=== PATIENT | female | born 1985 | race African-American/Black ===

== ENCOUNTER 2017-03-25 14:05 | Emergency (ER) | payer MEDICAID, SELFPAY | END 2017-03-25 15:30 | disposition home or self-care (01) | LOC: MADERS 14:05 | DX: J32.0 Chronic maxillary sinusitis (principal); F17.210 Nicotine dependence, cigarettes, uncomplicated | CPT/HCPCS: 99283 ==

== ENCOUNTER 2017-08-13 22:18 | Emergency (ER) | payer SELFPAY ==
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
== END 2017-08-14 02:27 | disposition home or self-care (01) ==
LOC: MADERS 22:18
DX: S06.0X0A Concussion without loss of consciousness, initial encounter (principal); F17.210 Nicotine dependence, cigarettes, uncomplicated; V49.9XXA Car occupant (driver) (passenger) injured in unspecified traffic accident, initial encounter
CPT/HCPCS: 70450

== ENCOUNTER 2017-09-09 04:26 | Emergency (ER) | payer SELFPAY | END 2017-09-09 05:34 | disposition home or self-care (01) | LOC: MADERS 04:26 | DX: G56.02 Carpal tunnel syndrome, left upper limb (principal); F17.210 Nicotine dependence, cigarettes, uncomplicated | CPT/HCPCS: 99283 ==

== ENCOUNTER 2018-05-03 20:59 | Emergency (ER) | payer SELFPAY ==
[2018-05-03 22:02] LABS: #Basophils 0.1 thou/uL (0.0-0.2); #Eosinphils 0.2 thou/uL (0.0-0.7); #Lymphocytes 2.7 thou/uL (1.20-3.40); #Monocytes 0.5 thou/uL (0.11-0.59); %Eosinophils 2.4 % (0.0-10.0); %Lymphocytes 41.9 % (21.0-51.0); %Monocytes 7.2 % (0.0-10.0); %Neutrophils 46.5 % (42.0-75.0); Anisocytosis SLIGHT = 6-15 cells (100X) (0-5/hpf); Elliptocytes SLIGHT = 2-5 cells (100X) (0-1/hpf); Hemoglobin 7.6 g/dL (12.0-16.0); Hypochromia MODERATE=16-30 cells (100X) (0-5/hpf); MDiff Complete? YES; Mean Corpuscular HGB CONC 29.4 g/dL (32.0-36.0); Mean Corpuscular Hemoglobin 18.2 pg (27.0-31.0); Mean Corpuscular Volume 61.8 fL (78.0-98.0); Mean Platelet Volume 6.5 fL (7.4-10.4); Microcytosis SLIGHT = 6-15 cells (100X) (0-5/hpf); PLT Morphology Comment Appears Adequate; Platelet Count 181 thou/uL (130-400); Poikilocytosis SLIGHT = 6-15 cells (100X) (0-5/hpf); RBC Distribution Width 18.9 % (11.5-14.5); RBC Morphology Abnormal; Red Blood Cell (RBC) Count 4.19 mill/uL (4.20-5.40); White Blood Cell (WBC) Count 6.4 thou/uL (4.8-10.8)
[2018-05-03 22:21] LABS: Bilirubin Negative (Negative); Blood, Urine Moderate (Negative); Glucose, Urine (Dipstick) Negative (Negative); Leukocyte Negative (Negative); Nitrite Negative (Negative); Protein, Urine (Dipstick) Trace mg/dL (Neg-Trace); Urobilinogen 0.2 mg/dL (0.2-1.0); pH, Urine 8.5 (5.0-9.0)
[2018-05-03 22:23] LABS: Bacteria/HPF None Seen HPF (None Seen); Clarity Cloudy (Clear); RBC/HPF GREATER THAN 50-TNTC HPF (0-3); WBC/HPF 0-3 HPF (0-3)
[2018-05-06 19:13] LABS: Chlamydia by PCR Not Detected (NotDetected)
[2018-05-06 19:14] LABS: GC by PCR Not Detected (NotDetected)
== END 2018-05-03 22:37 | disposition short-term general hospital (02) ==
LOC: MADERS 20:59
DX: O46.91 Antepartum hemorrhage, unspecified, first trimester (principal); O99.011 Anemia complicating pregnancy, first trimester; O99.331 Smoking (tobacco) complicating pregnancy, first trimester; Z3A.01 Less than 8 weeks gestation of pregnancy
CPT/HCPCS: 81003; 81015; 84702; 85025; 86850; 86900; 86901; 87480; 87491; 87510; 87591; 87660; 99285

== ENCOUNTER 2019-04-24 18:52 | Emergency (ER) | payer OTHER, SELFPAY ==
[~2019-04-24 18:52] MED LIST: Iopamidol 370 76% 100 ML VIAL ONE; Sodium Chloride 0.9% 1,000 ML BAG ONE
[2019-04-24] MEDS ORDERED: Ketorolac Tromethamine 30 MG/ML VIAL ONE (19:50)
[2019-04-24 19:52] LABS: BHCG - Serum Negative (NEGATIVE); Pregs Control Background? CLEAR/WHITE (CLR/WHITE); Pregs Control Bar Appear? YES (CONTROL BAR)
[2019-04-24 19:55] LABS: ALT (SGPT) 8 U/L (8-55); AST (SGOT) 11 U/L (5-34); Albumin 4.2 g/dL (3.5-5.0); Alkaline Phosphatase 108 U/L (40-110); Anion Gap 13 mmol/L (10-20); BUN (Urea Nitrogen) 10 mg/dL (7.0-18.7); Bilirubin, Total Less than 0.2 mg/dL (0.2-1.2); Calc. Creatinine Clearance 0 mL/min (70-130); Calcium 9.8 mg/dL (7.8-10.44); Carbon Dioxide 22 mmol/L (22-29); Chloride 108 mmol/L (98-107); Estimated GFR-MDRD Greater than 90; Globulin 3.3 g/dL (2.4-3.5); Glucose 121 mg/dL (70-105); Potassium 4.1 mmol/L (3.5-5.1); Protein, Total 7.5 g/dL (6.0-8.3); Sodium 139 mmol/L (136-145)
[2019-04-24 19:58] LABS: #Basophils 0.1 thou/uL (0.0-0.2); #Eosinphils 0.2 thou/uL (0.0-0.7); #Lymphocytes 2.6 thou/uL (1.20-3.40); #Monocytes 0.4 thou/uL (0.11-0.59); #Neutrophils 3.5 thou/uL (1.40-6.50); %Basophils 2.2 % (0.0-1.0); %Eosinophils 2.4 % (0.0-10.0); %Lymphocytes 38.4 % (21.0-51.0); %Monocytes 6.2 % (0.0-10.0); %Neutrophils 50.9 % (42.0-75.0); Anisocytosis SLIGHT = 6-15 cells (100X) (0-5/hpf); Hemoglobin 9.1 g/dL (12.0-16.0); Hypochromia SLIGHT = 6-15 cells (100X) (0-5/hpf); MDiff Complete? YES; Mean Corpuscular HGB CONC 27.5 g/dL (32.0-36.0); Mean Corpuscular Hemoglobin 17.2 pg (27.0-31.0); Mean Corpuscular Volume 62.5 fL (78.0-98.0); Microcytosis SLIGHT = 6-15 cells (100X) (0-5/hpf); Ovalocytes SLIGHT = 2-5 cells (100X) (0-1/hpf); Platelet Count 251 thou/uL (130-400); Platelet Morphology Comment Appears Adequate; RBC Distribution Width 17.7 % (11.5-14.5); Target Cells SLIGHT = 2-5 cells (100X) (0-1/hpf); Tear Drops SLIGHT = 2-5 cells (100X) (0-1/hpf); White Blood Cell (WBC) Count 6.8 thou/uL (4.8-10.8)
[2019-04-24 20:11] LABS: Bilirubin Negative (Negative); Blood, Urine Negative (Negative); Clarity Slightly Cloudy (Clear); Glucose, Urine (Dipstick) Negative (Negative); Leukocyte Small (Negative); Nitrite Negative (Negative); Protein, Urine (Dipstick) Negative (Neg-Trace); Urobilinogen 0.2 mg/dL (Less than 2)
--- NOTE | 2019-04-24 20:17 | RAD ---
2 view chest: [04/24/2019] Comparison:None available HISTORY: Cough and fever FINDINGS: Heart and mediastinal contours are grossly unremarkable. No pneumothorax or pleural fluid. No focal consolidation or alveolar edema. IMPRESSION: No acute findings.
[2019-04-24 20:19] LABS: Bacteria/HPF 1+ HPF (None Seen); RBC/HPF None Seen HPF (0-3)
[2019-04-24 20:20] LABS: Mucous/LPF 1+ LPF (<2+)
[2019-04-24 20:21] LABS: Amphetamine Detected (NotDetected); Benzodiazepine Screen Not Detected (NotDetected); Cocaine Metabolite Screen Not Detected (NotDetected); Methamphetamine Detected (NotDetected); Opiate Screen Not Detected (NotDetected); Phencyclidine (PCP) Not Detected (NotDetected); THC/Cannabinoid Screen Not Detected (NotDetected)
[2019-04-24 20:22] LABS: Barbiturates Screen Not Detected (NotDetected); Medtox Control Line Valid? VALID (VALID); Methadone Not Detected (NotDetected); Oxycodone Screen Not Detected (NotDetected); Tricyclic Screen Not Detected (NotDetected)
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
== END 2019-04-24 21:05 | disposition home or self-care (01) ==
LOC: MADERS 18:52
DX: K64.9 Unspecified hemorrhoids (principal); D64.9 Anemia, unspecified; F17.210 Nicotine dependence, cigarettes, uncomplicated
CPT/HCPCS: 71046; 74177; 80053; 80306; 81003; 81015; 83605; 84703; 85025; 87804; 96361; 96374; J1885; J7050; Q9967

== ENCOUNTER 2019-10-03 21:57 | Emergency (ER) | payer SELFPAY ==
[2019-10-03] MEDS ORDERED: Ibuprofen 400 MG TAB ONE ×2 (22:53→22:57)
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
== END 2019-10-03 23:03 | disposition home or self-care (01) ==
LOC: MADERS 21:57
DX: S02.40DA Maxillary fracture, left side, initial encounter for closed fracture (principal); S02.5XXA Fracture of tooth (traumatic), initial encounter for closed fracture; S93.601A Unspecified sprain of right foot, initial encounter; M54.6 Pain in thoracic spine; D64.9 Anemia, unspecified; F17.210 Nicotine dependence, cigarettes, uncomplicated; W17.89XA Other fall from one level to another, initial encounter

== ENCOUNTER 2019-10-25 18:53 | Emergency (ER) | payer MEDICAID ==
[2019-10-25] MEDS ORDERED: diphenhydrAMINE 25 MG CAP ONE (19:24)
[2019-10-25] MEDS ORDERED: Metoclopramide HCl 10 MG TAB ONE (19:24)
[2019-10-25] MEDS ORDERED: Ibuprofen 800 MG TAB ONE (19:24)
== END 2019-10-25 19:40 | disposition home or self-care (01) ==
LOC: MADERS 18:53
DX: G43.909 Migraine, unspecified, not intractable, without status migrainosus (principal); S93.401A Sprain of unspecified ligament of right ankle, initial encounter; R11.10 Vomiting, unspecified; T45.4X5A Adverse effect of iron and its compounds, initial encounter; D64.9 Anemia, unspecified; F17.210 Nicotine dependence, cigarettes, uncomplicated
CPT/HCPCS: 99283; Q0163

== ENCOUNTER 2019-11-16 11:38 | Emergency (ER) | payer MEDICAID, SELFPAY | END 2019-11-16 12:15 | disposition home or self-care (01) | LOC: MADERS 11:38 | DX: S93.401A Sprain of unspecified ligament of right ankle, initial encounter (principal); D64.9 Anemia, unspecified; F31.9 Bipolar disorder, unspecified; F17.210 Nicotine dependence, cigarettes, uncomplicated; W18.30XA Fall on same level, unspecified, initial encounter | CPT/HCPCS: 99283 ==

== ENCOUNTER 2019-12-04 09:49 | Emergency (ER) | payer MEDICAID, SELFPAY ==
[2019-12-04 10:29] LABS: Bilirubin Negative (Negative); Blood, Urine Negative (Negative); Clarity Clear (Clear); Glucose, Urine (Dipstick) Negative (Negative); Ketone, Urine Negative (Negative); Leukocyte Negative (Negative); Nitrite Negative (Negative); Protein, Urine (Dipstick) Negative (Neg-Trace); Specific Gravity, Urine 1.025 (1.005-1.030); Urobilinogen 0.2 mg/dL (Less than 2)
[2019-12-04 10:32] LABS: Bacteria/HPF Rare-Few HPF (None Seen); RBC/HPF 0-3 HPF (0-3); Squamous Epithelial 0-3 HPF (0-3); WBC/HPF None Seen HPF (0-3)
== END 2019-12-04 10:50 | disposition home or self-care (01) ==
LOC: MADERS 09:49
DX: S93.401A Sprain of unspecified ligament of right ankle, initial encounter (principal); R63.5 Abnormal weight gain; D64.9 Anemia, unspecified; F31.9 Bipolar disorder, unspecified; F17.210 Nicotine dependence, cigarettes, uncomplicated; Z79.899 Other long term (current) drug therapy
CPT/HCPCS: 81001; 99283

== ENCOUNTER 2019-12-30 09:52 | Emergency (ER) | payer MEDICAID, SELFPAY ==
[~2019-12-30 09:52] MED LIST changes: -Iopamidol 370 76% 100 ML VIAL ONE; +Iopamidol 370 76% 125 ML VIAL FS ONE; -Sodium Chloride 0.9% 1,000 ML BAG ONE
[2019-12-30] MEDS ORDERED: Sodium Chloride 0.9% 1,000 ML ONE (10:38)
[2019-12-30 11:28] LABS: ALT (SGPT) 22 U/L (8-55); AST (SGOT) 18 U/L (5-34); Albumin 4.3 g/dL (3.5-5.0); Alkaline Phosphatase 91 U/L (40-110); Anion Gap 15 mmol/L (10-20); BUN (Urea Nitrogen) 10 mg/dL (7.0-18.7); Bilirubin, Total 0.4 mg/dL (0.2-1.2); Calc. Creatinine Clearance 0 mL/min (70-130); Calcium 9.7 mg/dL (7.8-10.44); Carbon Dioxide 23 mmol/L (22-29); Chloride 104 mmol/L (98-107); Estimated GFR-MDRD Greater than 90; Globulin 3.4 g/dL (2.4-3.5); Glucose 80 mg/dL (70-105); Magnesium 1.6 mg/dL (1.6-2.6); Potassium 3.8 mmol/L (3.5-5.1); Protein, Total 7.7 g/dL (6.0-8.3); Sodium 138 mmol/L (136-145)
[2019-12-30 11:30] LABS: #Basophils 0.2 thou/uL (0.0-0.2); #Eosinphils 0.2 thou/uL (0.0-0.7); #Lymphocytes 2.5 thou/uL (1.20-3.40); #Monocytes 0.5 thou/uL (0.11-0.59); #Neutrophils 7.4 thou/uL (1.40-6.50); %Eosinophils 1.7 % (0.0-10.0); %Monocytes 4.3 % (0.0-10.0); MDiff Complete? YES; Mean Corpuscular Hemoglobin 24.1 pg (27.0-31.0); Mean Corpuscular Volume 77.9 fL (78.0-98.0); Mean Platelet Volume 7.9 fL (7.4-10.4); Microcytosis SLIGHT = 6-15 cells (100X) (0-5/hpf); Platelet Count 292 thou/uL (130-400); Platelet Morphology Comment Appears Adequate; RBC Distribution Width 18.5 % (11.5-14.5); Red Blood Cell (RBC) Count 5.79 mill/uL (4.20-5.40); White Blood Cell (WBC) Count 10.7 thou/uL (4.8-10.8)
[2019-12-30 11:37] LABS: Bilirubin Negative (Negative); Blood, Urine Large (Negative); Glucose, Urine (Dipstick) Negative (Negative); Ketone, Urine Negative (Negative); Leukocyte Negative (Negative); Nitrite Negative (Negative); Protein, Urine (Dipstick) Negative (Neg-Trace); Urobilinogen 0.2 mg/dL (Less than 2); pH, Urine 5.5 (5.0-9.0)
[2019-12-30 11:38] LABS: Clarity Hazy (Clear); Pregnancy Test - Urine (BHCG) Negative (Negative); Pregu Control Background? CLEAR/WHITE (CLR/WHITE); Pregu Control Bar Appear? YES (CONTROL BAR); Specific Gravity 1.005 (1.002-1.036); Specific Gravity, Urine 1.005 (1.002-1.036)
--- NOTE | 2019-12-30 11:43 | CT ---
CT PULMONARY ANGIOGRAM WITH IV CONTRAST AND 3-D POSTPROCESSING: HISTORY:Cough, chest pain, tachycardia FINDINGS: There is good contrast opacification of the pulmonary arterial vasculature without filling defects to suggest pulmonary embolism. The thoracic aorta is well opacified without aneurysm or dissection. No pleural or pericardial effusions are seen. No pneumothoraces or lung nodules are noted. There are small patchy areas of focal consolidation in the lingula and left lung base posteriorly. Small patchy infiltrate is also seen in the right upper lobe close to the infrahilar region. IMPRESSION: No CT evidence of pulmonary embolism. Probable pneumonia.
[2019-12-30 11:46] LABS: Amphetamine Not Detected (NotDetected); Barbiturates Screen Not Detected (NotDetected); Benzodiazepine Screen Not Detected (NotDetected); Cocaine Metabolite Screen Not Detected (NotDetected); Medtox Control Line Valid? VALID (VALID); Methadone Not Detected (NotDetected); Methamphetamine Not Detected (NotDetected); Opiate Screen Not Detected (NotDetected); Oxycodone Screen Not Detected (NotDetected); Phencyclidine (PCP) Not Detected (NotDetected); THC/Cannabinoid Screen Not Detected (NotDetected); Tricyclic Screen Not Detected (NotDetected)
[2019-12-30 11:47] LABS: Bacteria/HPF Rare-Few HPF (None Seen); Squamous Epithelial 0-3 HPF (0-3); WBC/HPF 0-3 HPF (0-3)
[2019-12-30] MEDS ORDERED: Levofloxacin 500 mg/D5W 100 ml Premix Bag ONE (12:07)
== END 2019-12-30 13:15 | disposition home or self-care (01) ==
LOC: MADERS 09:52
DX: J18.9 Pneumonia, unspecified organism (principal); M79.10 Myalgia, unspecified site; D64.9 Anemia, unspecified; F17.210 Nicotine dependence, cigarettes, uncomplicated; Z79.899 Other long term (current) drug therapy
CPT/HCPCS: 36415; 71275; 80053; 80306; 81003; 81015; 81025; 83605; 83735; 85025; 87040; 96361; 96365; J1956; J7050; Q9967

== ENCOUNTER 2020-01-07 20:57 | Emergency (ER) | payer SELFPAY ==
[2020-01-07] MEDS ORDERED: Naproxen 500 MG TAB ONE (21:19)
== END 2020-01-07 21:24 | disposition home or self-care (01) ==
LOC: MADERS 20:57
DX: J20.9 Acute bronchitis, unspecified (principal); J01.90 Acute sinusitis, unspecified; M25.562 Pain in left knee; M25.561 Pain in right knee; M25.571 Pain in right ankle and joints of right foot; M25.572 Pain in left ankle and joints of left foot; F17.210 Nicotine dependence, cigarettes, uncomplicated; Z79.899 Other long term (current) drug therapy
CPT/HCPCS: 99283

== ENCOUNTER 2020-12-06 09:16 | Emergency (ER) | payer SELFPAY ==
[2020-12-06] MEDS ORDERED: Acetaminophen 325 MG TAB ONE (09:40)
[2020-12-06] MEDS ORDERED: Ondansetron ODT 4 MG TAB ONE (09:40)
[2020-12-07 11:40] LABS: SARS-CoV-2 PCR by NAA Not Detected (NotDetected)
== END 2020-12-06 10:10 | disposition home or self-care (01) ==
LOC: MADERS 09:16
DX: J34.89 Other specified disorders of nose and nasal sinuses (principal); R11.10 Vomiting, unspecified; R05 Cough; R51.9 Headache, unspecified; D64.9 Anemia, unspecified; Z20.822 Contact with and (suspected) exposure to COVID-19; F17.210 Nicotine dependence, cigarettes, uncomplicated
CPT/HCPCS: 99284; Q0162; U0003; U0005

== ENCOUNTER 2021-01-30 06:51 | Emergency (ER) | payer SELFPAY ==
[2021-01-30 23:47] LABS: SARS-CoV-2 PCR by NAA Not Detected (NotDetected)
== END 2021-01-30 07:45 | disposition home or self-care (01) ==
LOC: MADERS 06:51
DX: J02.9 Acute pharyngitis, unspecified (principal); Z20.822 Contact with and (suspected) exposure to COVID-19; D64.9 Anemia, unspecified; F17.210 Nicotine dependence, cigarettes, uncomplicated
CPT/HCPCS: 99284; U0003; U0005

== ENCOUNTER 2021-02-14 12:21 | Emergency (ER) | payer MEDICAID, SELFPAY | END 2021-02-14 12:45 | disposition left against medical advice (07) | LOC: MADERS 12:21 | DX: Z53.21 Procedure and treatment not carried out due to patient leaving prior to being seen by health care provider (principal) ==

== ENCOUNTER 2021-10-09 13:46 | Emergency (ER) | payer SELFPAY ==
[2021-10-09] MEDS ORDERED: Acetaminophen 500 MG TAB ONE (14:12)
== END 2021-10-09 14:10 | disposition home or self-care (01) ==
LOC: MADERS 13:46
DX: S00.03XA Contusion of scalp, initial encounter (principal); D64.9 Anemia, unspecified; F17.210 Nicotine dependence, cigarettes, uncomplicated; Y04.2XXA Assault by strike against or bumped into by another person, initial encounter
CPT/HCPCS: 99283

== ENCOUNTER 2022-03-15 12:03 | Emergency (ER) | payer BC, SELFPAY ==
[2022-03-15 12:37] LABS: Pregnancy Test - Urine (BHCG) Negative (Negative); Specific Gravity 1.025 (1.002-1.036)
[2022-03-15 12:38] LABS: Bilirubin Negative (Negative); Blood, Urine Negative (Negative); Glucose, Urine (Dipstick) Negative (Negative); Ketone, Urine Negative (Negative); Leukocyte Negative (Negative); Nitrite Negative (Negative); Pregu Control Background? CLEAR/WHITE (CLR/WHITE); Pregu Control Bar Appear? YES (CONTROL BAR); Protein, Urine (Dipstick) Negative (Neg-Trace); Specific Gravity, Urine 1.025 (1.005-1.030); Urobilinogen 0.2 mg/dL (Less than 2)
[2022-03-15 12:39] LABS: Clarity Clear (Clear)
== END 2022-03-15 13:05 | disposition home or self-care (01) ==
LOC: MADERS 12:03
DX: R11.2 Nausea with vomiting, unspecified (principal); F17.210 Nicotine dependence, cigarettes, uncomplicated
CPT/HCPCS: 81003; 81025; 99284

== ENCOUNTER 2022-05-05 13:44 | Emergency (ER) | payer BC | END 2022-05-05 15:50 | disposition left against medical advice (07) | LOC: MADERS 13:44 | DX: Z53.21 Procedure and treatment not carried out due to patient leaving prior to being seen by health care provider (principal) ==

== ENCOUNTER 2022-05-07 03:23 | Emergency (ER) | payer BC ==
[2022-05-07] MEDS ORDERED: Ondansetron ODT 4 MG TAB ONE (03:50)
[2022-05-07 04:11] LABS: Pregnancy Test - Urine (BHCG) Negative (Negative); Pregu Control Background? CLEAR/WHITE (CLR/WHITE); Pregu Control Bar Appear? YES (CONTROL BAR); Specific Gravity 1.027 (1.002-1.036)
[2022-05-07] MEDS ORDERED: Ketorolac Tromethamine 30 MG/ML VIAL ONE (04:17)
[2022-05-07 04:18] LABS: Amphetamine Not Detected (NotDetected); Barbiturates Screen Not Detected (NotDetected); Benzodiazepine Screen Not Detected (NotDetected); Cocaine Metabolite Screen Not Detected (NotDetected); Medtox Control Line Valid? VALID (VALID); Methadone Not Detected (NotDetected); Methamphetamine Not Detected (NotDetected); Opiate Screen Not Detected (NotDetected); Oxycodone Screen Not Detected (NotDetected); Phencyclidine (PCP) Not Detected (NotDetected); THC/Cannabinoid Screen Not Detected (NotDetected); Tricyclic Screen Not Detected (NotDetected)
== END 2022-05-07 05:43 | disposition home or self-care (01) ==
LOC: MADERS 03:23
DX: B34.9 Viral infection, unspecified (principal); M54.50 Low back pain, unspecified; G89.29 Other chronic pain; F17.210 Nicotine dependence, cigarettes, uncomplicated; Z20.822 Contact with and (suspected) exposure to COVID-19
CPT/HCPCS: 80306; 81025; 87081; 87430; 87804; 96372; 99283; J1885; Q0162; U0003; U0005

== ENCOUNTER 2022-05-13 19:57 | Emergency (ER) | payer BC | END 2022-05-13 20:17 | disposition home or self-care (01) | LOC: MADERS 19:57 | DX: M54.50 Low back pain, unspecified (principal); G89.29 Other chronic pain; F17.210 Nicotine dependence, cigarettes, uncomplicated | CPT/HCPCS: 99283 ==

== ENCOUNTER 2022-05-20 12:00 | Outpatient (CLI) | payer BC | END 2022-05-20 12:01 | disposition home or self-care (01) | LOC: MADLAB 12:00 | PROVIDERS: ATTEND Family Medicine | DX: M54.2 Cervicalgia (principal); M54.50 Low back pain, unspecified | CPT/HCPCS: 72040; 72070; 72100 ==

== ENCOUNTER 2022-09-22 20:00 | Emergency (ER) | payer OTHER ==
[2022-09-22] MEDS ORDERED: Colchicine 0.6 MG TAB ONE (20:48)
== END 2022-09-22 20:56 | disposition home or self-care (01) ==
LOC: MADERS 20:00
DX: M79.672 Pain in left foot (principal); M79.671 Pain in right foot
CPT/HCPCS: 99283

== ENCOUNTER 2022-12-23 08:06 | Emergency (ER) | payer OTHER ==
[2022-12-23] MEDS ORDERED: Sodium Chloride 0.9% 1,000 ML ONE (09:22)
[2022-12-23 09:26] LABS: #Basophils 0.2 thou/uL (0.0-0.2); #Lymphocytes 3.1 thou/uL (1.20-3.40); #Monocytes 0.5 thou/uL (0.11-0.59); #Neutrophils 4.1 thou/uL (1.40-6.50); %Basophils 2.6 % (0.0-1.0); %Eosinophils 0.4 % (0.0-10.0); %Lymphocytes 38.8 % (21.0-51.0); %Monocytes 6.3 % (0.0-10.0); Hematocrit 38.7 % (36.0-47.0); Hemoglobin 12.8 g/dL (12.0-16.0); Mean Corpuscular Hemoglobin 26.9 pg (27.0-31.0); Mean Corpuscular Volume 81.4 fl (78.0-98.0); Mean Platelet Volume 9.3 fL (7.4-10.4); Platelet Count 323 10x3/uL (130-400); Red Blood Cell (RBC) Count 4.75 mill/uL (4.20-5.40); White Blood Cell (WBC) Count 7.9 10x3/uL (4.8-10.8)
[2022-12-23 09:43] LABS: ALT (SGPT) 10 U/L (8-55); AST (SGOT) 19 U/L (5-34); Albumin 4.4 g/dL (3.5-5.0); Alkaline Phosphatase 95 U/L (40-110); Anion Gap 18 mmol/L (10-20); BUN (Urea Nitrogen) 13 mg/dL (7.0-18.7); Bilirubin, Total 0.7 mg/dL (0.2-1.2); Calc. Creatinine Clearance 0 mL/min (70-130); Calcium 9.5 mg/dL (7.8-10.44); Carbon Dioxide 18 mmol/L (22-29); Chloride 104 mmol/L (98-107); Estimated GFR 82; Globulin 3.2 g/dL (2.4-3.5); Glucose 79 mg/dL (70-105); Protein, Total 7.6 g/dL (6.0-8.3); Sodium 137 mmol/L (136-145)
[2022-12-23] MEDS ORDERED: Potassium Chloride 20 MEQ TAB ONE (09:54)
== END 2022-12-23 10:51 | disposition home or self-care (01) ==
LOC: MADERS 08:06
DX: R50.9 Fever, unspecified (principal); R05.9 Cough, unspecified; Z20.822 Contact with and (suspected) exposure to COVID-19; F17.290 Nicotine dependence, other tobacco product, uncomplicated
CPT/HCPCS: 71046; 80053; 83605; 85025; 87635; 87804; 93005; 96360; J7050

== ENCOUNTER 2023-02-05 08:13 | Emergency (ER) | payer OTHER | END 2023-02-05 09:05 | disposition home or self-care (01) | LOC: MADERS 08:13 | DX: B34.9 Viral infection, unspecified (principal); D64.9 Anemia, unspecified; F17.290 Nicotine dependence, other tobacco product, uncomplicated; Z20.822 Contact with and (suspected) exposure to COVID-19 | CPT/HCPCS: 99283 ==

== ENCOUNTER 2023-02-24 21:40 | Emergency (ER) | payer OTHER | END 2023-02-24 22:37 | disposition home or self-care (01) | LOC: MADERS 21:40 | DX: S43.402A Unspecified sprain of left shoulder joint, initial encounter (principal); F17.290 Nicotine dependence, other tobacco product, uncomplicated; D64.9 Anemia, unspecified; W20.8XXA Other cause of strike by thrown, projected or falling object, initial encounter; Y93.F2 Activity, caregiving, lifting; Y92.512 Supermarket, store or market as the place of occurrence of the external cause ==

== ENCOUNTER 2023-06-18 10:28 | Emergency (ER) | payer OTHER, SELFPAY | END 2023-06-18 11:27 | disposition home or self-care (01) | LOC: MADERS 10:28 | DX: S39.012A Strain of muscle, fascia and tendon of lower back, initial encounter (principal); H10.13 Acute atopic conjunctivitis, bilateral; F17.290 Nicotine dependence, other tobacco product, uncomplicated; X58.XXXA Exposure to other specified factors, initial encounter; Y99.0 Civilian activity done for income or pay | CPT/HCPCS: 99282 ==

== ENCOUNTER 2023-08-30 20:21 | Emergency (ER) | payer OTHER ==
[2023-08-30] MEDS ORDERED: Ibuprofen 800 MG TAB ONE (21:32)
[2023-08-30] MEDS ORDERED: Lidocaine 4% Patch ONE (21:32)
== END 2023-08-30 21:42 | disposition home or self-care (01) ==
LOC: MADERS 20:21
DX: S80.01XA Contusion of right knee, initial encounter (principal); M25.511 Pain in right shoulder; J45.909 Unspecified asthma, uncomplicated; F17.290 Nicotine dependence, other tobacco product, uncomplicated; Z86.2 Personal history of diseases of the blood and blood-forming organs and certain disorders involving the immune mechanism; V48.1XXA Car passenger injured in noncollision transport accident in nontraffic accident, initial encounter
CPT/HCPCS: 94760

== ENCOUNTER 2023-09-02 13:06 | Emergency (ER) | payer OTHER ==
[2023-09-02] MEDS ORDERED: Clindamycin 150 MG CAP ONE (14:25)
== END 2023-09-02 14:43 | disposition home or self-care (01) ==
LOC: MADERS 13:06
DX: S40.011A Contusion of right shoulder, initial encounter (principal); K04.7 Periapical abscess without sinus; F17.290 Nicotine dependence, other tobacco product, uncomplicated; V89.2XXA Person injured in unspecified motor-vehicle accident, traffic, initial encounter
CPT/HCPCS: 99283

== ENCOUNTER 2023-10-01 02:55 | Emergency (ER) | payer OTHER ==
[2023-10-01] MEDS ORDERED: Ibuprofen 600 MG TAB ONE (03:31)
[2023-10-01] MEDS ORDERED: predniSONE 20 MG TAB ONE (04:00)
== END 2023-10-01 04:05 | disposition home or self-care (01) ==
LOC: MADERS 02:55
DX: J02.8 Acute pharyngitis due to other specified organisms (principal); F17.210 Nicotine dependence, cigarettes, uncomplicated; F17.290 Nicotine dependence, other tobacco product, uncomplicated
CPT/HCPCS: 87081; 87430; 99283; J7512

== ENCOUNTER 2023-11-11 09:07 | Emergency (ER) | payer OTHER ==
[2023-11-11] MEDS ORDERED: Ketorolac Tromethamine 30 MG (1 mL) VIAL ONE (10:03)
== END 2023-11-11 11:01 | disposition home or self-care (01) ==
LOC: MADERS 09:07
DX: J20.9 Acute bronchitis, unspecified (principal); K02.9 Dental caries, unspecified; M79.10 Myalgia, unspecified site; F17.210 Nicotine dependence, cigarettes, uncomplicated; F17.290 Nicotine dependence, other tobacco product, uncomplicated
CPT/HCPCS: 71045; 87081; 87430; 96372; J1885

== ENCOUNTER 2024-02-16 10:03 | Emergency (ER) | payer OTHER ==
[2024-02-16] MEDS ORDERED: Ibuprofen 200 MG TAB ONE (10:37)
== END 2024-02-16 10:48 | disposition home or self-care (01) ==
LOC: MADERS 10:03
DX: J06.9 Acute upper respiratory infection, unspecified (principal); F17.210 Nicotine dependence, cigarettes, uncomplicated
CPT/HCPCS: 87081; 87430; 99283

== ENCOUNTER 2024-03-10 15:49 | Emergency (ER) | payer OTHER ==
[2024-03-10] MEDS ORDERED: Ketorolac Tromethamine 30 MG (1 mL) VIAL ONE (16:31)
[2024-03-10] MEDS ORDERED: Doxycycline 100 MG CAP ONE (16:31)
[2024-03-10] MEDS ORDERED: cefTRIAXone (ROCEPHIN) 500 MG VIAL ONE (16:31)
[2024-03-10] MEDS ORDERED: Sterile Water 10 ML ONE (16:31)
[2024-03-10] MEDS ORDERED: predniSONE 20 MG TAB ONE (16:31)
[2024-03-10 17:39] LABS: Pregnancy Test - Urine (BHCG) Negative (Negative); Pregu Control Background? CLEAR/WHITE (CLR/WHITE); Pregu Control Bar Appear? YES (CONTROL BAR); Specific Gravity 1.023 (1.002-1.036)
[2024-03-11 04:48] LABS: Chlam.trachomatis by PCR,Urine Not Detected (NotDetected); GC N.gonorrhoeae PCR,UrineVOID Not Detected (NotDetected)
== END 2024-03-10 17:46 | disposition home or self-care (01) ==
LOC: MADERS 15:49
DX: H10.9 Unspecified conjunctivitis (principal); M19.072 Primary osteoarthritis, left ankle and foot; F17.210 Nicotine dependence, cigarettes, uncomplicated; Z55.6 Problems related to health literacy
CPT/HCPCS: 81025; 87491; 87591; 96372; 99283; J0696; J1885; J7512

== ENCOUNTER 2024-06-10 01:27 | Emergency (ER) | payer OTHER, SELFPAY ==
[2024-06-10] MEDS ORDERED: Ondansetron ODT 4 MG TAB ONE (02:34)
[2024-06-10] MEDS ORDERED: Acetaminophen 500 MG TAB ONE (02:34)
== END 2024-06-10 02:43 | disposition home or self-care (01) ==
LOC: MADERS 01:27
DX: J02.9 Acute pharyngitis, unspecified (principal); F17.210 Nicotine dependence, cigarettes, uncomplicated
CPT/HCPCS: 87081; 87428; 87430; 99284; Q0162

== ENCOUNTER 2025-01-21 08:22 | Emergency (ER) | payer SELFPAY ==
[2025-01-21] MEDS ORDERED: Ibuprofen 600 MG TAB ONE (08:58)
[2025-01-21] MEDS ORDERED: predniSONE 20 MG TAB ONE (08:58)
== END 2025-01-21 09:41 | disposition home or self-care (01) ==
LOC: MADERS 08:22
DX: J06.9 Acute upper respiratory infection, unspecified (principal); M10.9 Gout, unspecified; H10.9 Unspecified conjunctivitis; E11.9 Type 2 diabetes mellitus without complications; F17.210 Nicotine dependence, cigarettes, uncomplicated
CPT/HCPCS: 87081; 87428; 87430; 99283; J7512